=== PATIENT | male | born 1980 | race Two or more races ===

== ENCOUNTER 2024-01-29 13:05 | Emergency (ER) | payer BC, OTHER ==
[~2024-01-29] VITALS: Ht 167.6 cm; Wt 103.0 kg
[2024-01-29 13:43] VITALS: TEMP 97.8
[2024-01-29] MEDS ORDERED: PER60TP TOP (13:54)
[2024-01-29] MEDS ORDERED: TRIA0.02 TOP (13:56)
[2024-01-29 18:25] VITALS: BP 131/74; PULSE 70; RESP 18; O2SAT 97
== END 2024-01-29 18:26 | disposition home or self-care (01) ==
LOC: EDSEX 13:05 → ER 13:05
DX: R21 Rash and other nonspecific skin eruption (principal); B86 Scabies; Z79.899 Other long term (current) drug therapy